=== PATIENT | female | born 1945 | race Caucasian/White ===

== ENCOUNTER 2025-05-22 12:04 | Observation (INO) | payer MEDICARE ==
[~2025-05-22] VITALS: Ht 162.6 cm; Wt 72.6 kg
--- NOTE | 2025-05-22 12:27 | EKG ---
[facility] Test Date: 2025-05-22 Test Time: 12:18:38 Pat Name: KADIE COHEN Department: ED Room: 326 Gender: F Security Assurance Specialist: [id number] : [id number] Requested By: KELI FERNANDEZ Order Number: [id number] Reading MD: Ankit Alan Measurements Intervals [place] Rate: 61 P: 24 [place]: 193 QRS: 27 QRSD: 104 T: 134 QT: 459 QTc: 462 Interpretive Statements Sinus rhythm Abnormal T, consider ischemia, lateral leads No previous ECG available for comparison Electronically Signed On 05-24-2025 13:07:19 DRY CLEANER APPRENTICE by Ankit Alan Please click the below link to view image of tracing.
[2025-05-22 12:47] LABS: IMMATURE GRANULOCYTE ABSOLUTE 0.01 K/uL (0-1); NUCLEATED RED BLOOD CELLS 0.0 % (0.0-0.19); PLATELET COUNT (AUTO) 191 K/uL (130-400); RED BLOOD CELL COUNT(AUTO) 3.87 MIL/uL (4.00-5.50); RED CELL DISTRIBUTION WIDTH 14.8 % (11.0-15.5); WHITE BLOOD COUNT (AUTO) 4.4 K/uL (4.8-10.8)
[2025-05-22 13:08] LABS: CREATININE 1.1 mg/dL (0.5-1.0); GLOMERULAR FILTR. RATE CALC 51.0 mL/min (>90); GLUCOSE,RANDOM 98.0 mg/dL (70-105); SODIUM SERUM 146.0 mmol/L (136-145); UREA NITROGEN, BLOOD 19.0 mg/dL (7-18)
--- NOTE | 2025-05-22 13:19 | HMCIMG ---
EXAM: CR Chest, 1 View. CLINICAL HISTORY: WEAKNESS COMPARISON: None provided. FINDINGS: LUNGS: There is no mass, infiltrate, or acute pulmonary abnormality. PLEURAL SPACES: No evidence of pleural effusion or pneumothorax. MEDIASTINUM: The cardiomediastinal silhouette is within normal limits. BONES: No aggressive appearing osseous lesion seen. IMPRESSION: No acute cardiopulmonary pathology is evident. /[place]
[2025-05-22] MEDS: 0.9%NACL 1000ML 1,000 ML IV ONE (13:34)
--- NOTE | 2025-05-22 13:36 | ERN ---
General Chief Complaint: Weakness Stated Complaint: WEAKNESS AND DIZZINESS Time Seen by MD: 12:06 Source: patient History of Present Illness Initial Comments PATIENT IS A 80-YEAR-OLD FEMALE COMING IN COMPLAINING OF A LOWER EXTREMITY WEAKNESS. PER PATIENT SHE WAS AT A [employer] EATING 0 PRESENTED WITH GENERALIZED WEAKNESS HAS BEEN BROUGHT HER IN FOR FURTHER EVALUATION. Allergies: Coded Allergies: No Known Allergies (Unverified Allergy, Unknown, 05/22/25) Home Meds Reported Medications Aspirin (Aspirin EC) 81 Mg Tablet.dr, 1 TAB PO DAILY for 30 Days, #30 TAB 0 Refills 05/22/25 Brimonidine Tartrate/Timolol (Brimonidine-Timolol 0.2%-0.5%) 0.2 %-0.5 % Drops, 1 DROP OP BID for 30 Days, #5 ML 0 Refills 05/22/25 Meclizine HCl (Meclizine HCl) 25 Mg Tablet, 25 MG PO TID, TAB 05/22/25 Latanoprost (Latanoprost) 0.005 % Drops, 1 DROP OP HS, ML 0 Refills 05/22/25 Levothyroxine Sodium (Levothyroxine) 150 Mcg Capsule, 1 CAP PO DAILY for 30 Days, #30 CAP 0 Refills 05/22/25 Atorvastatin Calcium (LIPITOR) 80 Mg Tablet, 1 TAB PO HS for 30 Days, #30 TAB 0 Refills 05/22/25 Carbamazepine (Carbamazepine ER 200Mg Tab) 200 Mg Tab.er.12h, 2 TAB PO BID for 30 Days, #60 TAB 0 Refills 05/22/25 Carbamazepine (Carbamazepine) 200 Mg Tablet, 1 TAB PO BID for 30 Days, #60 TAB 0 Refills 05/22/25 Levetiracetam (Levetiracetam) 500 Mg Tablet, 1 TAB PO BID for 30 Days, #60 TAB 0 Refills 05/22/25 Past Medical History Past Medical History: High Cholesterol, Hypertension, Seizure Past Surgical History: Other ROS Dictation CONSTITUTIONAL: NO CHILLS, NO FEVER, WEAKNESS, NO DIAPHORESIS, NO MALAISE. HEAD/FACE: NO SIGNS OF TRAUMA. EENT: NO EYE PAIN, NO BLURRED VISION, NO TEARING, NO DOUBLE VISION, NO EAR PAIN, NO EAR DISCHARGE, NO NOSE PAIN, NO NASAL CONGESTION, NO THROAT PAIN, NO THROAT SWELLING, NO MOUTH PAIN. RESPIRATORY: NO COUGH, NO ORTHOPNEA, NO SOB, NO STRIDOR, NO WHEEZING. CARDIOVASCULAR: NO CHEST PAIN, NO EDEMA, NO PALPITATIONS, NO SYNCOPE. GASTROINTESTINAL/ABDOMINAL: NO ABDOMINAL PAIN, NO CONSTIPATION, NO DIARRHEA, NO NAUSEA, NO VOMITING. GENITOURINARY: NO ABNORMAL DISCHARGE, NO DYSURIA, NO FREQUENT URINATION, NO HEM ATURIA. NO COMPLAINTS OF PAIN IN THE GENITALS. MUSCULOSKELETAL: NO BACK PAIN, NO GOUT, NO JOINT PAIN, NO JOINT SWELLING, NO MU SCLE PAIN, NO MUSCLE STIFFNESS, NO NECK PAIN. INTEGUMENTARY: NO CHANGE IN COLOR, NO CHANGE IN HAIR/NAILS, NO DRYNESS, NO LESION, NO LUMPS, NO RASH. NEUROLOGICAL/PSYCH: NO ANXIETY, NOT DEPRESSED, NO EMOTIONAL PROBLEM, NO HEADACHE, NO NUMBNESS, NO PRE-EXISTING DEFICIT, NO HISTORY OF SEIZURES, NO TREMORS, NO WEAKNESS. HEMATOLOGIC/LYMPHATIC: NOT ANEMIC, NO HISTORY OF BLOOD CLOTS, NO APPARENT BLEEDING, NO BRUISING, GLANDS NOT SWOLLEN. ALL SYSTEMS NEGATIVE, EXCEPT NOTED. Physical Exam Physical Exam Dictation VITAL SIGNS: REVIEWED. GENERAL APPEARANCE: ALERT, ORIENTED X3, NO ACUTE DISTRESS, OBESE. HEAD AND FACE: NON-TRAUMATIC. EYES: PERRL, PINK CONJUNCTIVAS, EYELID NO TRAUMA, ANTERIOR CHAMBER CLEAR. EARS: PINNAS INTACT AND NO SIGNS OF TRAUMA OR ERYTHEMA. EAR CANALS CLEAR AND NO DISCHARGE. TMS NO ERYTHEMA. NOSE: NO DISCHARGE, NO BLEEDING. OROPHARYNX: MOUTH NORMAL, TEETH NO CARIES, TONGUE PINK. PHARYNX CLEAR, NO ERYTHEMA. TONSILS NO EXUDATES, NO ABSCESSES NOTED. MUCOUS MEMBRANE MOIST. NECK: SUPPLE, NON-TENDER, NO THYROMEGALY, NO MASSES, NO JVD, NO BRUITS. BREAST: DEFERRED. CHEST: NO TENDERNESS, NO CREPITUS, NO PARADOXICAL MOVEMENT, NO RETRACTIONS. LUNGS: CLEAR, WELL-VENTILATED, SYMMETRIC, NO RALES, NO WHEEZING, NO RHONCHI, NO STRIDOR, GOOD BREATH SOUNDS BILATERALLY. HEART: REGULAR RATE, REGULAR RHYTHM, NO MURMUR, NO GALLOPS. VASCULAR: NO PERIPHERAL EDEMA. ABDOMEN: SOFT, POSITIVE BOWEL SOUNDS, NONDISTENDED, NO GUARDING, NONTENDER, NO REBOUND, NO MASSES NO HEPATOMEGALY, NO SPLENOMEGALY, NO DALTON'S SIGN, NO HERNIAS. RECTAL: DEFERRED. GENITAL: DEFERRED. NEUROLOGICAL: NORMAL SPEECH, GROSS MOTOR FUNCTION INTACT, GROSS SENSORY FUNCTION INTACT. MUSCULOSKELETAL: NECK NONTENDER, FULL RANGE OF MOTION, BACK NONTENDER, FULL RANGE OF MOTION. EXTREMITIES: NONTENDER, FULL RANGE OF MOTION. SKIN: COLOR PINK, DRY, NO TURGOR, NO RASH, NO LACERATIONS, NO ABRASIONS, NO CONTUSIONS. LYMPHATICS: DEFERRED. Results Laboratory and Microbiology Lab and Micro Result Laboratory Tests Test 05/22/25 12:43 05/22/25 15:12 White Blood Count 4.4 K/uL (4.8-10.8) L Red Blood Count 3.87 MIL/uL (4.00-5.50) L Hemoglobin 11.0 g/dL (12.0-16.0) L Hematocrit 35.2 % (36-48) L Mean Corpuscular Volume 91.0 fL (79-99) Mean Corpuscular Hemoglobin 28.4 pg (27.0-33.0) Mean Corpuscular Hemoglobin Concent 31.3 g/dL (32.0-36.0) L Red Cell Distribution Width 14.8 % (11.0-15.5) Platelet Count 191 K/uL (130-400) Mean Platelet Volume 9.3 fL (7.5-10.5) Immature Granulocyte % (Auto) 0.2 % (0-1) Neutrophils (%) (Auto) 57.0 % (40.0-77.0) Lymphocytes (%) (Auto) 27.3 % (21.0-51.0) Monocytes (%) (Auto) 12.6 % (3.0-13.0) Eosinophils (%) (Auto) 2.7 % (0.0-8.0) Basophils (%) (Auto) 0.2 % (0.0-5.0) Neutrophils # (Auto) 2.5 K/uL (1.8-7.7) Lymphocytes # (Auto) 1.2 K/uL (1.0-4.8) Monocytes # (Auto) 0.6 K/uL (0.1-1.0) Eosinophils # (Auto) 0.12 K/uL (0.00-0.70) Basophils # (Auto) 0.01 K/uL (0.00-0.20) Absolute Immature Granulocyte (auto 0.01 K/uL (0-1) Nucleated Red Blood Cells 0.0 % (0.0-0.19) Sodium Level 146 mmol/L (136-145) H Potassium Level 3.8 mmol/L (3.5-5.1) Chloride Level 109 mmol/L (101-111) Carbon Dioxide Level 29 mmol/L (21-32) Blood Urea Nitrogen 19 mg/dL (7-18) H Creatinine 1.1 mg/dL (0.5-1.0) H Glomerular Filtration Rate Calc 51 mL/min (>90) Random Glucose 98 mg/dL (70-105) Total Calcium 8.0 mg/dL (8.5-10.1) L Magnesium Level 2.30 mg/dL (1.80-2.40) Troponin I High Sensitivity 11 ng/L (4-50) Urine Color YELLOW (YELLOW) Urine Appearance CLOUDY (CLEAR) H Urine pH 5.5 (5.0-8.0) Urine Specific [place] 1.025 (1.001-1.031) Urine Protein 20 mg/dL (NEGATIVE) H Urine Glucose (UA) NEGATIVE mg/dL (NEGATIVE) Urine Ketones NEGATIVE mg/dL (NEGATIVE) Urine Occult Blood NEGATIVE (NEGATIVE) Urine Nitrate NEGATIVE (NEGATIVE) Urine Bilirubin NEGATIVE mg/dL (NEGATIVE) Urine Urobilinogen 0.2 mg/dL (0.2-1.0) Urine Leukocyte Esterase 500 Luis/uL (NEGATIVE) H Urine RBC 26-50 /HPF (0-1) H Urine WBC TNTC /HPF (0-1) H Urine Squamous Epithelial Cells FEW /HPF (0-2) Urine Transitional Epithelial Cells FEW /HPF (None Seen) Urine Bacteria RARE /HPF (None Seen) Labs Reviewed?: Yes EKG/XRAY/US/CT/MRI EKG Comment 05/22/2024 TIME 12:18 P.M. VENTRICULAR RATE 61 SINUS RHYTHM [place] [address] WAVE ELEVATION DEPRESSION MDM MDM: DIFFERENTIAL DIAGNOSIS: Hypernatremia, dehydration, UTI RATIONALE: TESTS CONSIDERED AND ORDERED SECONDARY TO SHARED DECISION MAKING INCLUDE: PREVIOUS OUTSIDE RECORDS REVIEWED: OLD ER VISITS. RISK OF COMPLICATION AND/OR MORBIDITY OR MORTALITY OF PATIENT MANAGEMENT: NONE MEDICATIONS-PER MEDICATION RECONCILIATION NEED FOR HOSPITALIZATION: PATIENT DOES MEET CRITERIA FOR HOSPITALIZATION. NEED FOR EMERGENCY MAJOR/MINOR SURGERY: NO THERE ARE NO SOCIAL CONCERNS WITH THIS PATIENT. PRESCRIPTION DRUG MANAGEMENT PRESCRIPTIONS WILL INCLUDE SYMPTOMATIC CARE PATIENT'S PRIOR EXTERNAL MEDICAL RECORDS FROM OTHER ER VISITS WERE REVIEWED BY ME INDICATED. PRIOR TESTING AND RESULTS FROM PREVIOUS VISITS WERE REVIEWED. PRIOR TESTS WERE TAKEN INTO ACCOUNT WITH MEDICAL DECISION MAKING AND RESOURCE UTILIZATION, INDEPENDENT HISTORIAN/HISTORIANS WERE USED TO OBTAIN COMPLETE MEDICAL HISTORY. I INDEPENDENTLY INTERPRETED THE TEST THAT WERE PERFORMED, RESULTS WERE REVIEWED BY ME AND CONSIDERED FINDINGS ON RADIOLOGY IF ORDERED. MEDICAL MANAGEMENT AND EXAMINATION INTERPRETATION DISCUSSIONS WERE HAD BY ME WI TH OTHER QUALIFIED HEALTHCARE PROFESSIONALS INDICATED FOR THE PATIENT'S CARE. Patient will be admitted under the Care of hospitalist group ED Course Orders Procedure Category Date Status Time Cbc With Differential LAB 05/22/25 Complete 12:15 Chest 1vw RAD 05/22/25 Resulted 12:15 12 Lead Ekg Tracing- EKG 05/22/25 Complete Technical 12:15 0.9%Nacl 1000ml (Ns PHA 05/22/25 Complete 1000ml) 12:30 Magnesium LAB 05/22/25 Complete 12:15 Troponin I High LAB 05/22/25 Complete Sensitivity 12:15 Urinalysis Profile LAB 05/22/25 Complete 12:15 Basic Metabolic Panel LAB 05/22/25 Complete 12:15 Culture Urine CAITIE 05/22/25 In Process 15:30 Ceftriaxone 1g Vial PHA 05/22/25 In Process (Rocephine 1g Inj) 16:30 Current Medications Medications (Trade) Dose Ordered Sig/Jessica Route PRN Reason Start Time Stop Time Status Last Admin Dose Admin Ceftriaxone Sodium (ROCEphine 1G INJ) 1 gm ONCE ONCE IVPB 05/22/25 16:30 05/22/25 16:31 Sodium Chloride 1,000 ml @ 0 mls/hr ONCE ONCE IV 05/22/25 12:30 05/22/25 12:31 DC 05/22/25 13:34 Vital Signs Date Time Temp Pulse Resp B/P (MAP) Pulse Ox O2 Delivery O2 Flow Rate FiO2 05/22/25 14:51 97.2 62 16 155/78 98 Room Air* 0 21 05/22/25 13:41 97.2 59 16 137/53 99 Room Air* 0 21 05/22/25 12:06 97.9 60 20 119/65 99 Room Air 0 DX & DISP Disposition: Inpatient Decision to Admit Time: 16:07 Departure Impression: Primary Impression: UTI (urinary tract infection) Additional Impressions: Dehydration, Hypernatremia Condition: Stable Referrals: SELF,REFERRAL (PCP) REBECCA,KELI MD May 22, 2025 13:36
[2025-05-22 15:22] LABS: APPEARANCE,URINE CLOUDY (CLEAR); GLUCOSE, URINE (UA) NEGATIVE (NEGATIVE); LEUKOCYTE ESTERASE ,URINE 500 Leu/uL (NEGATIVE); NITRATE,URINE NEGATIVE (NEGATIVE); OCCULT BLOOD,URINE NEGATIVE (NEGATIVE)
[2025-05-22 15:30] LABS: ADD UA MICROSCOPIC YES
[2025-05-22 15:51] LABS: SQUAMOUS EPITHELIAL CELL,UR FEW /HPF (0-2)
--- NOTE | 2025-05-22 16:42 | HP ---
[facility] Date of Service: May 22, 2025 Time of Service: 16:42 HISTORY OF PRESENT ILLNESS: 80-year-old female with past medical history of seizure disorder, hypertension, hyperlipidemia, hypothyroidism, history of thyroid cancer status post th yroidectomy presented to the hospital secondary to generalized weakness. Patient states she noted that she was having lower extremity weakness while eating at a restaurant. She is not able to ambulate much. After coming to the hospital her weakness felt better. She denies any upper or lower extremity paresthesias, falls, syncopal episode. She is able to move her lower extremity without issues. Denied any fever, chills, chest pain, shortness of breath, abdominal pain. She ambulates independently. 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 She was also being followed by her primary care provider for lower back pain. She had a MRI done but was not able to follow up with a surgeon since she had nephrectomy done. She denies any urinary incontinence but has noted that she is having increasing urinary frequency. Denied any burning sensation with urination. Denied any nausea, vomiting. Labs were notable for white count of 4.4, hemoglobin was 11.0, platelet count was 191 K, sodium was 146, potassium was 3.8, creatinine was 1.1, troponin was negative x1. patient's UA was concerning for UTI with positive leuk history and pyuria noted Patient had a chest x-ray done which was negative. REVIEW OF SYSTEMS CONSTITUTIONAL: Denies fevers, chills, or night sweats. No unintentional weight loss reported. NEUROLOGICAL: Denies headache, amaurosis fugax, motor weakness, sensory deficit, vertigo/spinning sensation, gait abnormalities, or tremors. Positive for lower extremity weakness ENT: No hearing loss, otalgia, otorrhea, rhinitis, rhinorrhea, hoarseness, or sore throat. CARDIOVASCULAR: Denies any exertional angina, dyspnea on exertion, orthopnea, paroxysmal nocturnal dyspnea, palpitations, life-threatening arrhythmias, claudication. PULMONARY: Denies any shortness of breath, cough, phlegm/sputum, hemoptysis, pleuritic chest pain. GASTROINTESTINAL: Denies any type of dysphagia to either liquids or solids. Denies nausea, vomiting, pyrosis, early satiety, abdominal pain, diarrhea, constipation, or changes in stool consistency or caliber. Denies coffee-ground emesis, hematemesis, hematochezia, or melanotic stools. GENITOURINARY: Denies frequency, urgency, nocturia, hematuria or incontinence (Storage/Irritative symptoms.) Low urinary stream, straining to void, urinary intermittency or hesitancy, splitting of the voiding stream, terminal dribbling. ENDOCRINOLOGIC: Denies polyuria, polydipsia, polyphagia or heat/cold intolerances. HEMATOLOGIC: Denies thrombophilia/previous clots, or coagulopathy/bleeding disorders. ONCOLOGIC: Denies personal history of malignancy. DERMATOLOGIC: Denies rashes or pruritus. PSYCHIATRIC: Denies any suicidal or homicidal ideation. Denies hallucinations. PAST MEDICAL HISTORY: Seizure disorder, hypertension, hyperlipidemia, hypothyroidism, history of thyroid cancer PAST SURGICAL HISTORY: History of thyroidectomy History of nephrectomy PAST SOCIAL HISTORY: Denied any smoking, alcohol, drug FAMILY HISTORY: Denied any pertinent family history Coded Allergies: No Known Allergies (Unverified Allergy, Unknown, 05/22/25) PHYSICAL EXAM GENERAL APPEARANCE: The patient is awake, alert, and oriented, in no acute cardiopulmonary distress. NEUROLOGICAL: Cranial nerves II-XII grossly intact. Motor is 5/5 in bilateral upper and lower extremities proximal to distal. No sensory deficits. No focal deficits noted. The patient is able to move her upper and lower extremity without issues HEENT: Face is symmetric. Pupils are equal and reactive. Extraocular movements are intact. NECK: Supple. No JVD. No thyromegaly. No submental, submandibular, pre- /postauricular, occipital or supraclavicular lymphadenopathy. CHEST: Normal chest expansion. No Telemetry. LUNGS: Absence of any rales, rhonchi or any wheezing. CARDIOVASCULAR: Regular. S1 and S2 normal. No appreciable rubs, murmurs or gallops. ABDOMEN: Soft, nontender, and nondistended. There is no rebound, voluntary guarding, or rigidity. : Deferred. No Lin. EXTREMITIES: Non-edematous and not cyanotic. No clubbing. Good capillary refill. SKIN: No skin breakdown. Vital Sign (Last 24 Hours) 05/22/25 14:51 Temp 97.2 Pulse 62 Resp 16 B/P (MAP) 155/78 Pulse Ox 98 O2 Delivery Room Air* O2 Flow Rate 0 FiO2 21 LABS: Laboratory: Test 05/22/25 15:12 05/22/25 12:43 Range/Units Urine Color YELLOW YELLOW Urine Appearance CLOUDY H CLEAR Urine pH 5.5 5.0-8.0 Urine Specific [place] 1.025 1.001-1.031 Urine Protein 20 H NEGATIVE mg/dL Urine Glucose (UA) NEGATIVE NEGATIVE mg/dL Urine Ketones NEGATIVE NEGATIVE mg/dL Urine Occult Blood NEGATIVE NEGATIVE Urine Nitrate NEGATIVE NEGATIVE Urine Bilirubin NEGATIVE NEGATIVE mg/dL Urine Urobilinogen 0.2 0.2-1.0 mg/dL Urine Leukocyte Esterase 500 H NEGATIVE Luis/uL Urine RBC 26-50 H 0-1 /HPF Urine WBC TNTC H 0-1 /HPF Urine Squamous Epithelial Cells FEW 0-2 /HPF Urine Transitional Epithelial Cells FEW None Seen /HPF Urine Bacteria RARE None Seen /HPF White Blood Count 4.4 L 4.8-10.8 K/uL Red Blood Count 3.87 L 4.00-5.50 MIL/uL Hemoglobin 11.0 L 12.0-16.0 g/dL Hematocrit 35.2 L 36-48 % Mean Corpuscular Volume 91.0 79-99 fL Mean Corpuscular Hemoglobin 28.4 27.0-33.0 pg Mean Corpuscular Hemoglobin Concent 31.3 L 32.0-36.0 g/dL Red Cell Distribution Width 14.8 11.0-15.5 % Platelet Count 191 130-400 K/uL Mean Platelet Volume 9.3 7.5-10.5 fL Immature Granulocyte % (Auto) 0.2 0-1 % Neutrophils (%) (Auto) 57.0 40.0-77.0 % Lymphocytes (%) (Auto) 27.3 21.0-51.0 % Monocytes (%) (Auto) 12.6 3.0-13.0 % Eosinophils (%) (Auto) 2.7 0.0-8.0 % Basophils (%) (Auto) 0.2 0.0-5.0 % Neutrophils # (Auto) 2.5 1.8-7.7 K/uL Lymphocytes # (Auto) 1.2 1.0-4.8 K/uL Monocytes # (Auto) 0.6 0.1-1.0 K/uL Eosinophils # (Auto) 0.12 0.00-0.70 K/uL Basophils # (Auto) 0.01 0.00-0.20 K/uL Absolute Immature Granulocyte (auto 0.01 0-1 K/uL Nucleated Red Blood Cells 0.0 0.0-0.19 % Sodium Level 146 H 136-145 mmol/L Potassium Level 3.8 3.5-5.1 mmol/L Chloride Level 109 101-111 mmol/L Carbon Dioxide Level 29 21-32 mmol/L Blood Urea Nitrogen 19 H 7-18 mg/dL Creatinine 1.1 H 0.5-1.0 mg/dL Glomerular Filtration Rate Calc 51 >90 mL/min Random Glucose 98 70-105 mg/dL Total Calcium 8.0 L 8.5-10.1 mg/dL Magnesium Level 2.30 1.80-2.40 mg/dL Troponin I High Sensitivity 11 4-50 ng/L DIAGNOSTICS / RADIOLOGY: X-ray showed no acute infiltrates ASSESSMENT: UTI POA Mild hypernatremia Dehydration Debility Hypertension Hyperlipidemia Hypothyroidism History of thyroid cancer status post thyroidectomy PLAN: - patient to be admitted to medical-surgical unit with telemetry -in reference to UTI. The patient will continue on Rocephin2 g daily. Follow up on urine culture. -in reference to mild hyponatremia. Check urine sodium, urine osmolarity and serum osmolarity. The patient to be started on NS for gentle hydration -obtain patient's home medications which will be reconciled once available -check TSH, hemoglobin A1c -obtain PT evaluation. Patient does move her lower extremity without problems. We will closely monitor. If symptoms reoccur, we will consider MRI of the lower back. -further orders per hospitalization course. Advanced Care Planning Which of the following were discussed: Hospice care: Yes __ No _x_ Therapeutic options: Yes __ No __ Advance directives: Yes __ No __ Other discussions: Discussed with who?: patient (Patient, family or surrogates) Voluntary nature of this service was explained to the patient? Yes x__ No __ Amount of time spent: 25 minutes ANABELLA Cooper MD, MD May 22, 2025 16:42
[2025-05-22] MEDS ORDERED: 0.9%NACL 1000ML 1,000 ML IV SCH (17:00)
[2025-05-22] MEDS ORDERED: PoTASSium chl 10% ELIXIR 20MEQ 20 MEQ/15 ML UDCUP PO PRN (17:00)
[2025-05-22] MEDS ORDERED: PoTASSium chloRIDE 20MEQ ER 20 MEQ ERTAB PO PRN (17:00)
[2025-05-22] MEDS ORDERED: MAGNESIUM 2GM PREMIX 50ML 50 ML IV PRN (17:00)
--- NOTE | 2025-05-22 18:15 | NUR ---
MED REC DONE
[2025-05-22] MEDS: DEXTROSE 5 %-0.45 % NACL 1,000 ML IV SCH (18:24)
--- NOTE | 2025-05-22 18:33 | NUR ---
FIRST ATTEMPT AT CALLING REPORT
[2025-05-22 19:09] VITALS: O2SAT 99
--- NOTE | 2025-05-22 19:33 | NUR ---
REPORT GIVEN TO CAMILA NI
[2025-05-22 19:40] VITALS: BP 175/75; PULSE 64; RESP 20; TEMP 97.5
[2025-05-22 20:00] VITALS: BP 175/75; PULSE 64; RESP 20; TEMP 97.5
[2025-05-22] MEDS: LATANOPROST 2.5 ML DROPS OP SCH (21:00)
[2025-05-22 21:27] LABS: CREATININE 1.0 mg/dL (0.5-1.0); GLOMERULAR FILTR. RATE CALC 58.0 mL/min (>90); GLUCOSE,RANDOM 134.0 mg/dL (70-105); SODIUM SERUM 146.0 mmol/L (136-145); UREA NITROGEN, BLOOD 18.0 mg/dL (7-18)
[2025-05-23] VITALS: BP 163/69; PULSE 60; RESP 20; TEMP 97
[2025-05-23] MEDS ORDERED: PHARMACY COMMUNICATION MISC SCH
[2025-05-23 04:00] VITALS: BP 118/69; PULSE 70; RESP 18; TEMP 97.4
[2025-05-23 04:28] LABS: IMMATURE GRANULOCYTE ABSOLUTE 0.01 K/uL (0-1); NUCLEATED RED BLOOD CELLS 0.0 % (0.0-0.19); PLATELET COUNT (AUTO) 185 K/uL (130-400); RED BLOOD CELL COUNT(AUTO) 3.49 MIL/uL (4.00-5.50); RED CELL DISTRIBUTION WIDTH 14.6 % (11.0-15.5); WHITE BLOOD COUNT (AUTO) 5.2 K/uL (4.8-10.8)
[2025-05-23 04:46] LABS: CREATININE 1.0 mg/dL (0.5-1.0); GLOMERULAR FILTR. RATE CALC 58.0 mL/min (>90); GLUCOSE,RANDOM 100.0 mg/dL (70-105); SODIUM SERUM 144.0 mmol/L (136-145); UREA NITROGEN, BLOOD 17.0 mg/dL (7-18)
[2025-05-23 08:00] VITALS: BP 108/48; PULSE 63; RESP 19; TEMP 97.6
[2025-05-23] MEDS: FAMOTIDINE 20MG VIAL IV SCH (08:49)
[2025-05-23] MEDS: ASPIRIN 81 MG EC TAB PO SCH (08:50)
[2025-05-23 11:34] VITALS: BP 151/72; PULSE 67; RESP 18; TEMP 97.6
--- NOTE | 2025-05-23 14:01 | NUR ---
BEDSIDE SWALLOW EVALUATION: No s/s of aspiration. RECOMMENDATIONS: Regular textured solids, thin liquids, and whole pills. COMPENSATORY STRATEGIES: 1. Upright during PO intake SCIENTIFIC INFORMATICS PROJECT LEADER reviewed results and recommendations with patient and nurse Natalia. ST is not indicated at this time. SCIENTIFIC INFORMATICS PROJECT LEADER explained risks and consequences of aspiration. All questions answered.
[2025-05-23 16:00] VITALS: BP 157/54; PULSE 67; RESP 19; TEMP 97.6
--- NOTE | 2025-05-23 18:05 | PN ---
[facility] PROGRESS NOTE Date of Service: May 23, 2025 Time of Service: 17:39 SUBJECTIVE: 80-year-old female with past medical history of seizure disorder, hypertension, hyperlipidemia, hypothyroidism, history of thyroid cancer status post thyroidectomy presented to the hospital secondary to generalized weakness. Patient states she noted that she was having lower extremity weakness while eating at a restaurant. She is not able to ambulate much. After coming to the hospital her weakness felt better. She denies any upper or lower extremity paresthesias, falls, syncopal episode. She is able to move her lower extremity without issues. Denied any fever, chills, chest pain, shortness of breath, abdominal pain. She ambulates independently. 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 She was also being followed by her primary care provider for lower back pain. She had a MRI done but was not able to follow up with a surgeon since she had nephrectomy done. She denies any urinary incontinence but has noted that she is having increasing urinary frequency. Denied any burning sensation with urination. Denied any nausea, vomiting. Labs were notable for white count of 4.4, hemoglobin was 11.0, platelet count was 191 K, sodium was 146, potassium was 3.8, creatinine was 1.1, troponin was negative x1. patient's UA was concerning for UTI with positive leuk history and pyuria noted. Patient had a chest x-ray done which was negative. The patient is admitted in the hospital for further management. 05/23/2025: Patient is seen and evaluated in the room 326. She complained of no symptoms. Her vital signs are in the normal range except for blood pressure which is 157/54. Her labs are in the normal range except for Hb is 10. Her urine culture show 50,000 to 100,000CFU and Identification and susceptibility in process. We placed a consult for PT. We also ordered CK and iron panel. REVIEW OF SYSTEMS CONSTITUTIONAL: Denies fevers, chills, or night sweats. No unintentional weight loss reported. NEUROLOGICAL: Denies headache, amaurosis fugax, motor weakness, sensory deficit, vertigo/spinning sensation, gait abnormalities, or tremors. Positive f or lower extremity weakness ENT: No hearing loss, otalgia, otorrhea, rhinitis, rhinorrhea, hoarseness, or sore throat. CARDIOVASCULAR: Denies any exertional angina, dyspnea on exertion, orthopnea, paroxysmal nocturnal dyspnea, palpitations, life-threatening arrhythmias, claudication. PULMONARY: Denies any shortness of breath, cough, phlegm/sputum, hemoptysis, pleuritic chest pain. GASTROINTESTINAL: Denies any type of dysphagia to either liquids or solids. Denies nausea, vomiting, pyrosis, early satiety, abdominal pain, diarrhea, constipation, or changes in stool consistency or caliber. Denies coffee-ground emesis, hematemesis, hematochezia, or melanotic stools. GENITOURINARY: Denies frequency, urgency, nocturia, hematuria or incontinence (Storage/Irritative symptoms.) Low urinary stream, straining to void, urinary intermittency or hesitancy, splitting of the voiding stream, terminal dribbling. ENDOCRINOLOGIC: Denies polyuria, polydipsia, polyphagia or heat/cold intoleranc es. HEMATOLOGIC: Denies thrombophilia/previous clots, or coagulopathy/bleeding disorders. ONCOLOGIC: Denies personal history of malignancy. DERMATOLOGIC: Denies rashes or pruritus. PSYCHIATRIC: Denies any suicidal or homicidal ideation. Denies hallucinations. PHYSICAL EXAM GENERAL APPEARANCE: The patient is awake, alert, and oriented, in no acute cardiopulmonary distress. NEUROLOGICAL: Cranial nerves II-XII grossly intact. Motor is 5/5 in bilateral upper and lower extremities proximal to distal. No sensory deficits. No focal deficits noted. The patient is able to move her upper and lower extremity without issues HEENT: Face is symmetric. Pupils are equal and reactive. Extraocular movements are intact. NECK: Supple. No JVD. No thyromegaly. No submental, submandibular, pre- /postauricular, occipital or supraclavicular lymphadenopathy. CHEST: Normal chest expansion. No Telemetry. LUNGS: Absence of any rales, rhonchi or any wheezing. CARDIOVASCULAR: Regular. S1 and S2 normal. No appreciable rubs, murmurs or gallops. ABDOMEN: Soft, nontender, and nondistended. There is no rebound, voluntary guarding, or rigidity. : Deferred. No Lin. EXTREMITIES: Non-edematous and not cyanotic. No clubbing. Good capillary refill. SKIN: No skin breakdown. Vital Signs (last 8hr) Date Time Temp Pulse Resp B/P (MAP) Pulse Ox O2 Delivery O2 Flow Rate FiO2 12/7/25 16:00 97.5 67 19 157/54 99 Room Air 21 05/23/25 11:34 97.5 67 18 151/72 99 Room Air 21 LABS: Laboratory: Test 05/23/25 03:48 05/22/25 15:12 05/22/25 12:43 Range/Units White Blood Count 5.2 4.8-10.8 K/uL Red Blood Count 3.49 L 4.00-5.50 MIL/uL Hemoglobin 10.0 L 12.0-16.0 g/dL Hematocrit 31.2 L 36-48 % Mean Corpuscular Volume 89.4 79-99 fL Mean Corpuscular Hemoglobin 28.7 27.0-33.0 pg Mean Corpuscular Hemoglobin Concent 32.1 32.0-36.0 g/dL Red Cell Distribution Width 14.6 11.0-15.5 % Platelet Count 185 130-400 K/uL Mean Platelet Volume 9.9 7.5-10.5 fL Immature Granulocyte % (Auto) 0.2 0-1 % Neutrophils (%) (Auto) 50.6 40.0-77.0 % Lymphocytes (%) (Auto) 34.7 21.0-51.0 % Monocytes (%) (Auto) 11.2 3.0-13.0 % Eosinophils (%) (Auto) 3.1 0.0-8.0 % Basophils (%) (Auto) 0.2 0.0-5.0 % Neutrophils # (Auto) 2.6 1.8-7.7 K/uL Lymphocytes # (Auto) 1.8 1.0-4.8 K/uL Monocytes # (Auto) 0.6 0.1-1.0 K/uL Eosinophils # (Auto) 0.16 0.00-0.70 K/uL Basophils # (Auto) 0.01 0.00-0.20 K/uL Absolute Immature Granulocyte (auto 0.01 0-1 K/uL Nucleated Red Blood Cells 0.0 0.0-0.19 % Sodium Level 144 136-145 mmol/L Potassium Level 3.8 3.5-5.1 mmol/L Chloride Level 109 101-111 mmol/L Carbon Dioxide Level 27 21-32 mmol/L Blood Urea Nitrogen 17 7-18 mg/dL Creatinine 1.0 0.5-1.0 mg/dL Glomerular Filtration Rate Calc 58 >90 mL/min Random Glucose 100 70-105 mg/dL Total Calcium 7.4 L 8.5-10.1 mg/dL Urine Color YELLOW YELLOW Urine Appearance CLOUDY H CLEAR Urine pH 5.5 5.0-8.0 Urine Specific [place] 1.025 1.001-1.031 Urine Protein 20 H NEGATIVE mg/dL Urine Glucose (UA) NEGATIVE NEGATIVE mg/dL Urine Ketones NEGATIVE NEGATIVE mg/dL Urine Occult Blood NEGATIVE NEGATIVE Urine Nitrate NEGATIVE NEGATIVE Urine Bilirubin NEGATIVE NEGATIVE mg/dL Urine Urobilinogen 0.2 0.2-1.0 mg/dL Urine Leukocyte Esterase 500 H NEGATIVE Luis/uL Urine RBC 26-50 H 0-1 /HPF Urine WBC TNTC H 0-1 /HPF Urine Squamous Epithelial Cells FEW 0-2 /HPF Urine Transitional Epithelial Cells FEW None Seen /HPF Urine Bacteria RARE None Seen /HPF Urine Random Sodium 144 40-220 mmol/l Hemoglobin A1c 5.6 4.0-6.0 % Estimated Average Glucose (eAG) 114 70-126 mg/dL Magnesium Level 2.30 1.80-2.40 mg/dL Troponin I High Sensitivity 11 4-50 ng/L Procalcitonin < 0.05 L 0.05-0.5 ng/mL Thyroid Stimulating Hormone (TSH) 0.41 0.36-3.74 uIU/mL Current Medications Medications (Trade) Dose Ordered Sig/Jessica Route PRN Reason Start Time Stop Time Status Last Admin Dose Admin Acetaminophen (TYLenol 500MG TAB) 500 mg Q6H PRN PO MILD PAIN (1-3) 05/22/25 17:00 06/21/25 16:59 05/23/25 15:43 500 MG Aspirin (Aspirin 81mg Ec Tab) 81 mg DAILY PO 05/23/25 09:00 06/22/25 08:59 05/23/25 08:50 81 MG Atorvastatin Calcium (LIPItor 40MG) 40 mg HS PO 05/22/25 21:00 06/21/25 20:59 05/22/25 20:57 40 MG Carbamazepine (TEGRetol ER 200MG TAB) 200 mg BID PO 05/22/25 21:00 05/22/25 23:45 DC 05/22/25 20:57 200 MG Carbamazepine (TEGRetol ER 200MG TAB) 400 mg BID PO 05/23/25 09:00 06/21/25 20:59 05/23/25 08:50 400 MG Ceftriaxone Sodium (Rocephin 2gm Inj) 2 gm Q24H IVPB 05/23/25 08:00 06/02/25 07:59 05/23/25 08:49 2 GM Dextrose/Sodium Chloride 1,000 ml @ 75 mls/hr [id number] IV 05/22/25 17:30 06/21/25 17:29 05/23/25 05:36 75 MLS/HR Famotidine (Pepcid 20mg Vial) 20 mg DAILY IV 05/23/25 09:00 06/22/25 08:59 05/23/25 08:49 20 MG Home Med (Home Medication) BID OP 05/22/25 21:00 06/21/25 20:59 Hydralazine HCl (APRESOLine 20MG INJ) 10 mg Q6H PRN IV ADMINISTER FOR SBP > 180 05/22/25 23:30 06/21/25 23:29 05/23/25 01:46 10 MG Latanoprost (Xalatan) 1 drop each eye HS OP 05/22/25 21:00 06/21/25 20:59 Levetiracetam (kepPRA 500 MG TABLET) 500 mg BID PO 05/22/25 21:00 06/21/25 20:59 05/23/25 08:50 500 MG Levothyroxine Sodium (SYNTHroid 150MCG TAB) 150 mcg SYN PO 05/23/25 06:30 06/22/25 06:29 05/23/25 05:32 150 MCG Magnesium Sulfate 50 ml @ 0 mls/hr PROTOCOL PRN IV hypomagnesemia 05/22/25 17:00 06/21/25 16:59 Meclizine HCl (ANTIvert 25 mg) 25 mg TID PO 05/22/25 21:00 06/21/25 20:59 05/23/25 15:43 25 MG Ondansetron HCl (zoFRAN 4MG INJ) 4 mg Q6H PRN IVP NAUSEA/VOMITING 05/22/25 17:00 06/21/25 16:59 Pharmacy Profile Note (Pharmacy Communication) 1 each ONCE MISC 05/23/25 00:00 05/22/25 23:47 DC Potassium Chloride 100 ml @ 100 mls/hr AD PRN IV POTASSIUM PROTOCOL 05/22/25 17:00 06/21/25 16:59 Potassium Chloride (K-Dur/Klor-Con 20meq) 20 meq AD PRN PO POTASSIUM PROTOCOL 05/22/25 17:00 06/21/25 16:59 Potassium Chloride (KCl 10% Elixir 20meq/15ml) 20 meq AD PRN PO POTASSIUM PROTOCOL 05/22/25 17:00 06/21/25 16:59 Sodium Chloride 1,000 ml @ 100 mls/hr Q10H IV 05/22/25 17:00 05/22/25 17:33 DC DIAGNOSTICS / RADIOLOGY: [place] [address] [address] IMAGING REPORT Signed PATIENT: KADIE COHEN MR#: [id number] : 1945 SEX: F AGE: 80 LOCATION: [facility] ORDER 15 STATUS: REG REPORT#: [id number] SERVICE [id number] REASON: WEAKNESS ORDERING PHYSICIAN: KELI FERNANDEZ MD PROCEDURE: CXR1VW - CHEST 1VW EXAM: CR Chest, 1 View. CLINICAL HISTORY: WEAKNESS COMPARISON: None provided. FINDINGS: LUNGS: There is no mass, infiltrate, or acute pulmonary abnormality. PLEURAL SPACES: No evidence of pleural effusion or pneumothorax. MEDIASTINUM: The cardiomediastinal silhouette is within normal limits. BONES: No aggressive appearing osseous lesion seen. IMPRESSION: No acute cardiopulmonary pathology is evident. /[place] DICTATED BY: BARBIE VAUGHN Jr., MD DATE: 05/22/251417 ELECTRONICALLY SIGNED BY: BARBIE VAUGHN Jr., MD DATE: 05/22/251417 ASSESSMENT: UTI POA Mild hypernatremia Dehydration Debility Low hemoglobin Hypertension Hyperlipidemia Hypothyroidism History of thyroid cancer status post thyroidectomy PLAN: UTI POA Her urinalysis showed evidence of UTI. Urine culture grew 50,000 to 100,000 CFU. Identification and susceptibility is pending. We started her on ceftriaxone (day 1). Mild hypernatremia Today her sodium level is 144. We will repeat her labs tomorrow. Dehydration She complained of weakness at the time of admission but today she is not having any weakness. She said that she is not drinking enough water. Advised to drink 3 to 4 liters of water per day. We ordered a CK level. Debility She didn't complain of any weakness today. We placed a consult for PT. Low hemoglobin Today her hemoglobin level is 10. We ordered iron panel. We will repeat her labs tomorrow. Hypertension Today her blood pressure is 157/54. We will monitor her blood pressure. Hyperlipidemia Continue atorvastatin 40mg HS. Hypothyroidism History of thyroid cancer status post thyroidectomy Her TSH is 0.41. Continue levothyroxine 150mcg. She is on heart healthy diet. GI prophylaxis with famotidine. ATTESTATION BY PHYSICIAN I have seen and examined the patient. I reviewed the documentation, medical decision making, and treatment plan as noted by the resident physician above. I agree with the findings and plan of care. BERTA BENAVIDES MD, AKSHAY MD May 23, 2025 18:05
--- NOTE | 2025-05-23 19:01 | NUR ---
BEDSIDE SWALLOW EVALUATION: No s/s of aspiration. RECOMMENDATIONS: Regular textured solids, thin liquids, and whole pills. COMPENSATORY STRATEGIES: 1. Upright during PO intake 2. Alternate bites/sips 3. Small bites/sips WATER PUMPING STATION ENGINEER reviewed results and recommendations with patient and nurse Kassy. ST is not indicated at this time. WATER PUMPING STATION ENGINEER explained risks and consequences of aspiration. All questions answered.
--- NOTE | 2025-05-23 19:33 | NUR ---
BEDSIDE SWALLOW EVALUATION: No s/s of aspiration. RECOMMENDATIONS: Regular textured solids, thin liquids, and whole pills. COMPENSATORY STRATEGIES: 1. Upright during PO intake. ACID PAINTER reviewed results and recommendations with patient and nurse Natalia. ST is not indicated at this time. ACID PAINTER explained risks and consequences of aspiration. All questions answered.
[2025-05-23 21:42] VITALS: BP 152/69; PULSE 69; RESP 18; TEMP 98.2
[2025-05-24] VITALS (7 sets, daily range): BP systolic 137–166; BP diastolic 56–83; PULSE 66–88; RESP 17–20; TEMP 97.3–98
[2025-05-24 06:06] LABS: NUCLEATED RED BLOOD CELLS 0.0 % (0.0-0.19); PLATELET COUNT (AUTO) 171 K/uL (130-400); RED BLOOD CELL COUNT(AUTO) 3.67 MIL/uL (4.00-5.50); RED CELL DISTRIBUTION WIDTH 14.7 % (11.0-15.5); WHITE BLOOD COUNT (AUTO) 6.9 K/uL (4.8-10.8)
[2025-05-24] MEDS: LACTATED RINGERS 1000ML 1,000 ML IV SCH (07:18)
[2025-05-24 07:25] LABS: CREATINE KINASE, TOTAL 76.0 U/L (21-232); CREATININE 1.1 mg/dL (0.5-1.0); GLOMERULAR FILTR. RATE CALC 51.0 mL/min (>90); GLUCOSE,RANDOM 95.0 mg/dL (70-105); SODIUM SERUM 143.0 mmol/L (136-145); UREA NITROGEN, BLOOD 16.0 mg/dL (7-18)
[2025-05-24 07:32] LABS: % IRON SATURATION 38.4 % (22-44); IRON, SERUM 63.0 mcg/dL (50-170)
--- NOTE | 2025-05-24 11:04 | NUR ---
DCP:HOME Pt currently lives at home with her . Pt states that they are [place] from [place]. Pt denies any DME, home health, or provider service. PT states that she is normally able to complete ADLs independently. PCP is in [place] and uses [facility] for any RX needs. At DC pt will want to go home and family can assist with transportation.
--- NOTE | 2025-05-24 14:16 | PN ---
[facility] PROGRESS NOTE Date of Service: May 24, 2025 Time of Service: 13:55 SUBJECTIVE: 80-year-old female with past medical history of seizure disorder, hypertension, hyperlipidemia, hypothyroidism, history of thyroid cancer status post thyroidectomy presented to the hospital secondary to generalized weakness. Patient states she noted that she was having lower extremity weakness while eating at a restaurant. She is not able to ambulate much. After coming to the hospital her weakness felt better. She denies any upper or lower extremity paresthesias, falls, syncopal episode. She is able to move her lower extremity without issues. Denied any fever, chills, chest pain, shortness of breath, abdominal pain. She ambulates independently. 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 She was also being followed by her primary care provider for lower back pain. She had a MRI done but was not able to follow up with a surgeon since she had nephrectomy done. She denies any urinary incontinence but has noted that she is having increasing urinary frequency. Denied any burning sensation with urination. Denied any nausea, vomiting. Labs were notable for white count of 4.4, hemoglobin was 11.0, platelet count was 191 K, sodium was 146, potassium was 3.8, creatinine was 1.1, troponin was negative x1. patient's UA was concerning for UTI with positive leuk history and pyuria noted. Patient had a chest x-ray done which was negative. The patient is admitted in the hospital for further management. 05/23/2025: Patient is seen and evaluated in the room 326. She complained of no symptoms. Her vital signs are in the normal range except for blood pressure which is 157/54. Her labs are in the normal range except for Hb is 10. Her urine culture show 50,000 to 100,000CFU and Identification and susceptibility in process. We also ordered CK and iron panel. 05/24/2025: Patient is seen and evaluated in the room 326. Overnight she had 2 to 3 episodes of diarrhea. Today she had one episode of diarrhea and she said that its improving. Her vital signs are in the normal range expect for 151/75. Her labs are normal except for hemoglobin 10.6, creatinine 1.1, TIBC is 164. Her urine culture showed 50,000 to 100,000 CFU, identification and susceptibilities are pending. She passed her bedside swallowing. Her CK level is 76. We placed a consult for PT because patient is concerned about taking stairs at home. As her blood pressure is high we added norvasc and stopped LR and D50W. REVIEW OF SYSTEMS CONSTITUTIONAL: Denies fevers, chills, or night sweats. No unintentional weight loss reported. NEUROLOGICAL: Denies headache, amaurosis fugax, motor weakness, sensory deficit, vertigo/spinning sensation, gait abnormalities, or tremors. Positive for lower extremity weakness ENT: No hearing loss, otalgia, otorrhea, rhinitis, rhinorrhea, hoarseness, or sore throat. CARDIOVASCULAR: Denies any exertional angina, dyspnea on exertion, orthopnea, paroxysmal nocturnal dyspnea, palpitations, life-threatening arrhythmias, claudication. PULMONARY: Denies any shortness of breath, cough, phlegm/sputum, hemoptysis, pleuritic chest pain. GASTROINTESTINAL:diarrhea Denies any type of dysphagia to either liquids or solids. Denies nausea, vomiting, pyrosis, early satiety, abdominal pain, diarrhea, constipation, or changes in stool consistency or caliber. Denies coffee-ground emesis, hematemesis, hematochezia, or melanotic stools. GENITOURINARY: Denies frequency, urgency, nocturia, hematuria or incontinence (Storage/Irritative symptoms.) Low urinary stream, straining to void, urinary intermittency or hesitancy, splitting of the voiding stream, terminal dribbling. ENDOCRINOLOGIC: Denies polyuria, polydipsia, polyphagia or heat/cold intolerances. HEMATOLOGIC: Denies thrombophilia/previous clots, or coagulopathy/bleeding disorders. ONCOLOGIC: Denies personal history of malignancy. DERMATOLOGIC: Denies rashes or pruritus. PSYCHIATRIC: Denies any suicidal or homicidal ideation. Denies hallucinations. PHYSICAL EXAM GENERAL APPEARANCE: The patient is awake, alert, and oriented, in no acute cardiopulmonary distress. NEUROLOGICAL: Cranial nerves II-XII grossly intact. Motor is 5/5 in bilateral upper and lower extremities proximal to distal. No sensory deficits. No focal deficits noted. The patient is able to move her upper and lower extremity without issues HEENT: Face is symmetric. Pupils are equal and reactive. Extraocular movements are intact. NECK: Supple. No JVD. No thyromegaly. No submental, submandibular, pre- /postauricular, occipital or supraclavicular lymphadenopathy. CHEST: Normal chest expansion. No Telemetry. LUNGS: Absence of any rales, rhonchi or any wheezing. CARDIOVASCULAR: Regular. S1 and S2 normal. No appreciable rubs, murmurs or gallops. ABDOMEN: Soft, nontender, and nondistended. There is no rebound, voluntary guarding, or rigidity. : Deferred. No Lin. EXTREMITIES: Non-edematous and not cyanotic. No clubbing. Good capillary refill. SKIN: No skin breakdown. Vital Signs (last 8hr) Date Time Temp Pulse Resp B/P (MAP) Pulse Ox O2 Delivery O2 Flow Rate FiO2 05/24/25 11:26 97.7 75 18 138/56 99 Room Air 05/24/25 08:00 97.5 76 18 151/75 99 05/24/25 07:57 Room Air* 0 21 LABS: Laboratory: Test 05/24/25 07:04 05/24/25 05:56 05/23/25 03:48 05/22/25 15:12 Range/Units Sodium Level 143 136-145 mmol/L Potassium Level 3.9 3.5-5.1 mmol/L Chloride Level 108 101-111 mmol/L Carbon Dioxide Level 28 21-32 mmol/L Blood Urea Nitrogen 16 7-18 mg/dL Creatinine 1.1 H 0.5-1.0 mg/dL Glomerular Filtration Rate Calc 51 >90 mL/min Random Glucose 95 70-105 mg/dL Total Calcium 7.9 L 8.5-10.1 mg/dL Iron Level 63 50-170 mcg/dL Total Iron Binding Capacity 164 L 250-450 mcg/dL Percent Iron Saturation 38.4 22-44 % Total Creatine Kinase 76 21-232 U/L White Blood Count 6.9 4.8-10.8 K/uL Red Blood Count 3.67 L 4.00-5.50 MIL/uL Hemoglobin 10.2 L 12.0-16.0 g/dL Hematocrit 33.3 L 36-48 % Mean Corpuscular Volume 90.7 79-99 fL Mean Corpuscular Hemoglobin 27.8 27.0-33.0 pg Mean Corpuscular Hemoglobin Concent 30.6 L 32.0-36.0 g/dL Red Cell Distribution Width 14.7 11.0-15.5 % Platelet Count 171 130-400 K/uL Mean Platelet Volume 9.3 7.5-10.5 fL Nucleated Red Blood Cells 0.0 0.0-0.19 % Red Blood Cell Morphology See comments Immature Granulocyte % (Auto) 0.2 0-1 % Neutrophils (%) (Auto) 50.6 40.0-77.0 % Lymphocytes (%) (Auto) 34.7 21.0-51.0 % Monocytes (%) (Auto) 11.2 3.0-13.0 % Eosinophils (%) (Auto) 3.1 0.0-8.0 % Basophils (%) (Auto) 0.2 0.0-5.0 % Neutrophils # (Auto) 2.6 1.8-7.7 K/uL Lymphocytes # (Auto) 1.8 1.0-4.8 K/uL Monocytes # (Auto) 0.6 0.1-1.0 K/uL Eosinophils # (Auto) 0.16 0.00-0.70 K/uL Basophils # (Auto) 0.01 0.00-0.20 K/uL Absolute Immature Granulocyte (auto 0.01 0-1 K/uL Urine Color YELLOW YELLOW Urine Appearance CLOUDY H CLEAR Urine pH 5.5 5.0-8.0 Urine Specific Scroggins 1.025 1.001-1.031 Urine Protein 20 H NEGATIVE mg/dL Urine Glucose (UA) NEGATIVE NEGATIVE mg/dL Urine Ketones NEGATIVE NEGATIVE mg/dL Urine Occult Blood NEGATIVE NEGATIVE Urine Nitrate NEGATIVE NEGATIVE Urine Bilirubin NEGATIVE NEGATIVE mg/dL Urine Urobilinogen 0.2 0.2-1.0 mg/dL Urine Leukocyte Esterase 500 H NEGATIVE Luis/uL Urine RBC 26-50 H 0-1 /HPF Urine WBC TNTC H 0-1 /HPF Urine Squamous Epithelial Cells FEW 0-2 /HPF Urine Transitional Epithelial Cells FEW None Seen /HPF Urine Bacteria RARE None Seen /HPF Urine Random Sodium 144 40-220 mmol/l Current Medications Medications (Trade) Dose Ordered Sig/Jessica Route PRN Reason Start Time Stop Time Status Last Admin Dose Admin Acetaminophen (TYLenol 500MG TAB) 500 mg Q6H PRN PO MILD PAIN (1-3) 05/22/25 17:00 06/21/25 16:59 05/23/25 15:43 500 MG Amlodipine Besylate (NorvASC 2.5MG TAB) 2.5 mg DAILY PO 05/25/25 09:00 06/24/25 08:59 Aspirin (Aspirin 81mg Ec Tab) 81 mg DAILY PO 05/23/25 09:00 06/22/25 08:59 05/24/25 07:57 81 MG Atorvastatin Calcium (LIPItor 40MG) 40 mg HS PO 05/22/25 21:00 06/21/25 20:59 05/23/25 20:12 40 MG Carbamazepine (TEGRetol ER 200MG TAB) 200 mg BID PO 05/22/25 21:00 05/22/25 23:45 DC 05/22/25 20:57 200 MG Carbamazepine (TEGRetol ER 200MG TAB) 400 mg BID PO 05/23/25 09:00 06/21/25 20:59 05/24/25 07:57 400 MG Ceftriaxone Sodium (Rocephin 2gm Inj) 2 gm Q24H IVPB 05/23/25 08:00 06/02/25 07:59 05/24/25 07:56 2 GM Dextrose/Sodium Chloride 1,000 ml @ 75 mls/hr [id number] IV 05/22/25 17:30 05/24/25 06:43 DC 05/23/25 05:36 75 MLS/HR Famotidine (Pepcid 20mg Vial) 20 mg DAILY IV 05/23/25 09:00 06/22/25 08:59 05/24/25 07:57 20 MG Home Med (Home Medication) BID OP 05/22/25 21:00 06/21/25 20:59 Hydralazine HCl (APRESOLine 20MG INJ) 10 mg Q6H PRN IV ADMINISTER FOR SBP > 180 05/22/25 23:30 06/21/25 23:29 05/23/25 01:46 10 MG Lactated Ringer's 1,000 ml @ 75 mls/hr [id number] IV 05/24/25 07:00 05/24/25 11:17 DC 05/24/25 07:18 75 MLS/HR Latanoprost (Xalatan) 1 drop each eye HS OP 05/22/25 21:00 06/21/25 20:59 Levetiracetam (kepPRA 500 MG TABLET) 500 mg BID PO 05/22/25 21:00 06/21/25 20:59 05/24/25 07:57 500 MG Levothyroxine Sodium (SYNTHroid 150MCG TAB) 150 mcg SYN PO 05/23/25 06:30 06/22/25 06:29 05/24/25 06:38 150 MCG Magnesium Sulfate 50 ml @ 0 mls/hr PROTOCOL PRN IV hypomagnesemia 05/22/25 17:00 06/21/25 16:59 Meclizine HCl (ANTIvert 25 mg) 25 mg TID PO 05/22/25 21:00 06/21/25 20:59 05/24/25 13:24 25 MG Ondansetron HCl (zoFRAN 4MG INJ) 4 mg Q6H PRN IVP NAUSEA/VOMITING 05/22/25 17:00 06/21/25 16:59 Pharmacy Profile Note (Pharmacy Communication) 1 each ONCE MISC 05/23/25 00:00 05/22/25 23:47 DC Potassium Chloride 100 ml @ 100 mls/hr AD PRN IV POTASSIUM PROTOCOL 05/22/25 17:00 06/21/25 16:59 Potassium Chloride (K-Dur/Klor-Con 20meq) 20 meq AD PRN PO POTASSIUM PROTOCOL 05/22/25 17:00 06/21/25 16:59 Potassium Chloride (KCl 10% Elixir 20meq/15ml) 20 meq AD PRN PO POTASSIUM PROTOCOL 05/22/25 17:00 06/21/25 16:59 Sodium Chloride 1,000 ml @ 100 mls/hr Q10H IV 05/22/25 17:00 05/22/25 17:33 DC DIAGNOSTICS / RADIOLOGY: [ ] ASSESSMENT: UTI POA Mild hypernatremia Dehydration Debility Low hemoglobin Hypertension Hyperlipidemia Hypothyroidism History of thyroid cancer status post thyroidectomy PLAN: UTI POA Her urinalysis showed evidence of UTI. Urine culture grew 50,000 to 100,000 CFU. Identification and susceptibility is pending. We started her on ceftriaxone (day 2). Mild hypernatremia Today her sodium level is 146>144>143. We will repeat her labs tomorrow. Dehydration She complained of weakness at the time of admission but today she is not having any weakness. She said that she is not drinking enough water. Advised to drink 3 to 4 liters of water per day. We ordered a CK is 76. Debility She didn't complain of any weakness today. We placed a consult for PT because patient is concerned about taking stairs at home. Low hemoglobin Today her hemoglobin level is 10.2 Iron panel showed iron 63, TIBC is 164, % saturation is 38.4. We will repeat her labs tomorrow. Hypertension Today her blood pressure is 151/75. We added Norvasc 2.5mg and stopped LR and D50W. Her recent blood pressure is 138/56 We will monitor her blood pressure. Hyperlipidemia Continue atorvastatin 40mg HS. Hypothyroidism History of thyroid cancer status post thyroidectomy Her TSH is 0.41. Continue levothyroxine 150mcg. She is on heart healthy diet. GI prophylaxis with famotidine. ATTESTATION BY PHYSICIAN I have seen and examined the patient. I reviewed the documentation, medical decision making, and treatment plan as noted by the resident physician above. I agree with the findings and plan of care. BERTA BENAVIDES MD, AKSHAY MD May 24, 2025 14:16
[2025-05-25 04:00] VITALS: BP 124/77; PULSE 102; RESP 17; TEMP 97.8
[2025-05-25 05:58] LABS: NUCLEATED RED BLOOD CELLS 0.0 % (0.0-0.19); PLATELET COUNT (AUTO) 183.0 K/uL (130-400); RED BLOOD CELL COUNT(AUTO) 3.8 MIL/uL (4.00-5.50); RED CELL DISTRIBUTION WIDTH 14.6 % (11.0-15.5); WHITE BLOOD COUNT (AUTO) 6.6 K/uL (4.8-10.8)
[2025-05-25 06:13] LABS: CREATININE 1.2 mg/dL (0.5-1.0); GLOMERULAR FILTR. RATE CALC 46.0 mL/min (>90); GLUCOSE,RANDOM 91.0 mg/dL (70-105); SODIUM SERUM 142.0 mmol/L (136-145); UREA NITROGEN, BLOOD 17.0 mg/dL (7-18)
[2025-05-25] MEDS: amLODIPine 2.5 MG TAB PO SCH (07:51)
[2025-05-25 08:00] VITALS: BP 163/98; PULSE 81; RESP 18; TEMP 98.1
[2025-05-25 12:00] VITALS: BP 131/68; PULSE 68; RESP 18; TEMP 97.5
--- NOTE | 2025-05-25 12:12 | NUR ---
SPEECH NOTE: NIGHT COURT MAGISTRATE coordinated with nurse Suresh. As per nurse, patient tolerating diet recommendations of regular solids, thin liquids with no s/s of aspiration. Please re-consult speech therapy services if any s/s of aspiration arise. All questions answered. Addendum: 05/25/[address] [facility]NNETTE BOYD Amended: Links added.
[2025-05-25] MEDS: ZOSYN 3.375GM +NS 50ML IV ONE (13:42)
--- NOTE | 2025-05-25 15:49 | DS ---
Discharge Summary Hospital Course Summary: Patient information: Name: Tania Cohen Date of : 1945 Admission date: 05/22/2025 Attending physician: Dr. Colby Alcantar Admitting diagnosis: UTI POA Mild hypernatremia Dehydration Debility Hypertension Hyperlipidemia Hypothyroidism History of thyroid cancer status post thyroidectomy Course in hospital: 80-year-old female with past medical history of seizure disorder, hypertension, hyperlipidemia, hypothyroidism, history of thyroid cancer status post thyroidectomy presented to the hospital secondary to generalized weakness. Patient states she noted that she was having lower extremity weakness while eating at a restaurant. She is not able to ambulate much. After coming to the hospital her weakness felt better. She denies any upper or lower extremity paresthesias, falls, syncopal episode. She is able to move her lower extremity without issues. Denied any fever, chills, chest pain, shortness of breath, abdominal pain. She ambulates independently. 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 She was also being followed by her primary care provider for lower back pain. She had a MRI done but was not able to follow up with a surgeon since she had nephrectomy done. She denies any urinary incontinence but has noted that she is having increasing urinary frequency. Denied any burning sensation with urination. Denied any nausea, vomiting. Labs were notable for white count of 4.4, hemoglobin was 11.0, platelet count was 191 K, sodium was 146, potassium was 3.8, creatinine was 1.1, troponin was negative x1. patient's UA was concerning for UTI with positive leuk history and pyuria noted. Patient had a chest x-ray done which was negative. The patient was admitted in the hospital for further management. With the treatment her labs improved over time. Her blood pressure is elevated in the hospital so we added amlodipine 2.5mg PO daily. She also underwent a bedside swallowing test done and it said that she can eat her food by sitting upright. For the UTI we added ceftriaxone and we sent the urine for culture and it showed E.coli (ESBL). So we discontinued ceftriaxone and gave a dose of zosyn and started her on macrobid. We placed a consult for PT because patient is concerned about taking stairs at home. PT cleared her to use stairs at home. On 05/25/2025, she has no symptoms today. Her vitals are in the normal range, her labs are normal except for creatinine 1.2. She is medically stable and ready for discharge. So we discharged her. Procedure(s): [facility] [address] [place], [place] [id number] IMAGING REPORT Signed PATIENT: TANIA COHEN MR#: [id number] : 1945 SEX: F AGE: 80 LOCATION: [facility] ORDER 121 STATUS: REG ER REPORT#: [id number] SERVICE 14 REASON: WEAKNESS ORDERING PHYSICIAN: KELI FERNANDEZ MD PROCEDURE: CXR1VW - CHEST 1VW EXAM: CR Chest, 1 View. CLINICAL HISTORY: WEAKNESS COMPARISON: None provided. FINDINGS: LUNGS: There is no mass, infiltrate, or acute pulmonary abnormality. PLEURAL SPACES: No evidence of pleural effusion or pneumothorax. MEDIASTINUM: The cardiomediastinal silhouette is within normal limits. BONES: No aggressive appearing osseous lesion seen. IMPRESSION: No acute cardiopulmonary pathology is evident. /[place] DICTATED BY: BARBIE VAUGHN Jr., MD DATE: 05/22/251417 ELECTRONICALLY SIGNED BY: BARBIE VAUGHN Jr., MD DATE: 05/22/251417 Assessment/Plan: DISCHARGE DIAGNOSIS: UTI POA Mild hypernatremia, resolved Dehydration Debility Low hemoglobin Hypertension Hyperlipidemia Hypothyroidism History of thyroid cancer status post thyroidectomy ASSESSMENT/PLAN: UTI POA Her urinalysis showed evidence of UTI. We started her on ceftriaxone. Urine culture grew 50,000 to 100,000 CFU. The culture grew E.coli (ESBL). So we stopped ceftriaxone and gave her a dose of Zosyn and started her on nitrofurantoin. She is medically stable and ready for discharge. So we discharged her. Advise to continue nitrofurantoin. Mild hypernatremia, resolved Today her sodium level is 146>144>143>142. Dehydration She complained of weakness at the time of admission but today she is not having any weakness. She said that she is not drinking enough water. Advised to drink 3 to 4 liters of water per day. We ordered a CK is 76. Debility She didn't complain of any weakness today. We placed a consult for PT because patient is concerned about taking stairs at home. PT cleared her to use stairs at home. Low hemoglobin Today her hemoglobin level is 10.8 Iron panel showed iron 63, TIBC is 164, % saturation is 38.4. Advised to repeat her labs as an outpatient. Hypertension Her blood pressure is elevated in the hospital. We added Norvasc 2.5mg and stopped LR and D50W. Her recent blood pressure is 138/56. Advised to establish and follow up with PCP so that he can monitor your blood pressure and make changes if there are any. Hyperlipidemia Continue atorvastatin 40mg HS. Hypothyroidism History of thyroid cancer status post thyroidectomy Her TSH is 0.41. Continue levothyroxine 150mcg. Discharge Instructions: Discharge date: 05/25/2025 Discharge instructions: 1) Follow up with primary care physician within 2 to 3 days after discharge. 2) We are adding a new medication by name Amlodipine 2.5mg PO daily. Please establish and follow with PCP so that he can monitor your blood pressure and he can make changes as required. 3) Continue all medications as prescribed. Do not discontinue or change doses without consulting your PCP. 4) Gradually resume normal activities as tolerated. 5) Continue a balanced diet. 6) Seek immediate medical attention if you experience chest pain, SOB, or severe headache. Discharge to: Home Condition on discharge: Stable Home Medications: Active Scripts Nitrofurantoin/Nitrofuran Mac (Macrobid) 100 Mg Cap, 1 CAP PO BID for 10 Days, #20 CAP 0 Refills Prov:OTTONIEL GARCIA MD 05/25/25 Amlodipine Besylate (Amlodipine Besylate) 2.5 Mg Tablet, 1 TAB PO DAILY for 30 Days, #30 TAB 0 Refills Prov:OTTONIEL GARCIA MD 05/25/25 Reported Medications Aspirin (Aspirin EC) 81 Mg Tablet.dr, 1 TAB PO DAILY for 30 Days, #30 TAB 0 Refills 05/22/25 Brimonidine Tartrate/Timolol (Brimonidine-Timolol 0.2%-0.5%) 0.2 %-0.5 % Drops, 1 DROP OP BID for 30 Days, #5 ML 0 Refills 05/22/25 Meclizine HCl (Meclizine HCl) 25 Mg Tablet, 25 MG PO TID, TAB 05/22/25 Latanoprost (Latanoprost) 0.005 % Drops, 1 DROP OP HS, ML 0 Refills 05/22/25 Levothyroxine Sodium (Levothyroxine) 150 Mcg Capsule, 1 CAP PO DAILY for 30 Days, #30 CAP 0 Refills 05/22/25 Atorvastatin Calcium (LIPITOR) 80 Mg Tablet, 1 TAB PO HS for 30 Days, #30 TAB 0 Refills 05/22/25 Carbamazepine (Carbamazepine ER 200Mg Tab) 200 Mg Tab.er.12h, 2 TAB PO BID for 30 Days, #60 TAB 0 Refills 05/22/25 Levetiracetam (Levetiracetam) 500 Mg Tablet, 1 TAB PO BID for 30 Days, #60 TAB 0 Refills 05/22/25 Discontinued Reported Medications Carbamazepine (Carbamazepine) 200 Mg Tablet, 1 TAB PO BID for 30 Days, #60 TAB 0 Refills 05/22/25 New Medications: Amlodipine Besylate (Amlodipine Besylate) 2.5 Mg Tablet 1 TAB PO DAILY for 30 Days, #30 TAB 0 Refills Nitrofurantoin/Nitrofuran Mac (Macrobid) 100 Mg Cap 1 CAP PO BID for 10 Days, #20 CAP 0 Refills Continued Medications: Aspirin (Aspirin EC) 81 Mg Tablet.dr 1 TAB PO DAILY for 30 Days, #30 TAB 0 Refills Atorvastatin Calcium (Lipitor) 80 Mg Tablet 1 TAB PO HS for 30 Days, #30 TAB 0 Refills Brimonidine Tartrate/Timolol (Brimonidine-Timolol 0.2%-0.5%) 0.2 %-0.5 % Drops 1 DROP OP BID for 30 Days, #5 ML 0 Refills Carbamazepine (Carbamazepine ER 200Mg Tab) 200 Mg Tab.er.12h 2 TAB PO BID for 30 Days, #60 TAB 0 Refills Latanoprost (Latanoprost) 0.005 % Drops 1 DROP OP HS, ML 0 Refills Levetiracetam (Levetiracetam) 500 Mg Tablet 1 TAB PO BID for 30 Days, #60 TAB 0 Refills Levothyroxine Sodium (Levothyroxine) 150 Mcg Capsule 1 CAP PO DAILY for 30 Days, #30 CAP 0 Refills Meclizine HCl (Meclizine HCl) 25 Mg Tablet 25 MG PO TID, TAB Time spent arranging discharge: 1-30 minutes ATTESTATION BY PHYSICIAN I have seen and examined the patient. I reviewed the documentation, medical decision making, and treatment plan as noted by the resident physician above. I agree with the findings and plan of care. COLBY ALCANTAR MD, AKSHAY MD May 25, 2025 15:49
[2025-05-25 16:00] VITALS: BP 125/75; PULSE 75; RESP 18; TEMP 97.9
--- NOTE | 2025-05-25 17:05 | NUR ---
DISCHARGE FAMILY AT BEDSIDE. DC'D IV. PT AWARE TO FOLLOW UP WITH PCP WITHIN 2-3 DAYS. PT AWARE OF NEW MEDICATIONS SENT TO PHARMACY. ANSWERED ALL QUESTIONS AT THIS TIME.
== END 2025-05-25 17:25 | disposition home or self-care (01) ==
LOC: EDH 12:04 → UNDOADMOB 16:37 → EDHIP 16:37 → INTOOBSV 16:37 → 3DH 19:47 → EDHIP 19:47 → 3DH 05-24 11:40
PROVIDERS: ADMIT Internal Medicine; ATTEND Internal Medicine
DX: N39.0 Urinary tract infection, site not specified (principal); E87.0 Hyperosmolality and hypernatremia; E86.0 Dehydration; I10 Essential (primary) hypertension; G40.909 Epilepsy, unspecified, not intractable, without status epilepticus; E78.00 Pure hypercholesterolemia, unspecified; E89.0 Postprocedural hypothyroidism; E87.1 Hypo-osmolality and hyponatremia; D64.9 Anemia, unspecified; R53.81 Other malaise; Z85.850 Personal history of malignant neoplasm of thyroid; Z79.899 Other long term (current) drug therapy; Z98.890 Other specified postprocedural states
CPT/HCPCS: 96361 ×3; 96365; 99285; 83036; 84443; 83735; 84484; 80048 ×5; 84300; 85025 ×2; 87086 ×2; 83930; 83935; 81001; 36415 ×4; 71045; 93005; 84145; 96375; 97161; 97116 ×2; 97530 ×3; 92610; 96376 ×2; 83540; 83550; 82550; 85027 ×2; 87186; 96366; 96367; J7042; J7030; J0696 ×4; J1308 ×3; J0360 ×2; G0378 ×30; J2543; 96374